=== PATIENT | male | born 1980 | race Caucasian/White ===

== ENCOUNTER 2017-03-03 17:50 | Emergency (ER) | payer OTHER ==
[2017-03-03] MEDS ORDERED: ONDANSETRON HCL 4 MG/2 ML VIAL ONE (20:14)
[2017-03-03] MEDS ORDERED: KETOROLAC TROMETHAMINE 30 MG/ML VIAL ONE (20:14)
[2017-03-03 20:19] LABS: BASOPHIL# 0.1 X 10^3uL (0.0-0.1); EOSINOPHILS 1.9 % (0.0-6.0); EOSINOPHILS# 0.2 X 10^3uL (0.0-0.4); HEMATOCRIT 44.8 % (42.0-54.0); HEMOGLOBIN 15.8 g/dL (14.0-18.0); LYMPHOCYTES 42.8 % (20.0-40.0); LYMPHOCYTES# 3.5 X 10^3uL (0.8-3.8); MEAN CELL VOLUME 84.7 fL (80.0-100.0); MEAN CORPUS. HGB CONCENTRATION 35.3 g/dL (32.0-36.0); MEAN CORPUSCULAR HEMOGLOBIN 29.9 pg (29.0-35.0); MEAN PLATELET VOLUME 8.6 fL (7.4-10.4); MONOCYTES 11.8 % (2.0-10.0); NEUTROPHILS 42.5 % (54.0-75.0); NEUTROPHILS# 3.6 X 10^3uL (2.6-6.7); PLATELET COUNT 271 X 10^3uL (130-440); RED BLOOD COUNT 5.28 X 10^6uL (4.20-6.10); RED CELL DISTRIBUTION WIDTH 12.4 % (11.5-14.5); WHITE BLOOD COUNT 8.4 X 10^3uL (3.9-10.7)
[2017-03-03 20:30] LABS: A/G RATIO 1.2; ALBUMIN 4.6 g/dL (3.5-5.0); ALKALINE PHOSPHATASE 82 U/L (38-126); ALT 59 U/L (21-72); AST 41 U/L (17-59); BILIRUBIN, TOTAL 0.7 mg/dL (0.2-1.3); BLOOD UREA NITROGEN 18 mg/dL (9-20); CALCIUM 9.6 mg/dL (8.4-10.2); CHLORIDE 105 mmol/L (98-107); EST GLOMERULAR FILTRATION RATE > 60 mL/min; GLUCOSE 95 mg/dL (70-100); SODIUM 143 mmol/L (137-145); TOTAL PROTEIN 8.3 g/dL (6.3-8.2)
--- NOTE | 2017-03-03 20:45 | CT REPORT ---
HISTORY: Left flank pain x2 weeks COMPARISON: None TECHNIQUE: This examination was performed using automated exposure control, adjustment of mA or kV ac cording to patient size, and/or use of iterative reconstruction technique. Axial and coronal imaging through the abdomen and pelvis with coronal reformatted images. CONTRAST: None FINDINGS: CHEST: Lung bases are unremarkable. LIVER: Unremarkable GALLBLADDER/DUCTS: Unremarkable PANCREAS: Unremarkable SPLEEN: Unremarkable ADRENAL GLANDS: Unremarkable GENITOURINARY: 4 mm left proximal ureter stone with mild-moderate left hydroureteronephrosis proximal to the stone. No perinephric fluid collection. No evidence of bladder stone. No evidence of right ur inary tract stone. BOWEL AND MESENTERY: Unremarkable APPENDIX: Not visualized AORTA: Unremarkable FREE AIR/FREE FLUID: None PELVIS/OSSEOUS: No evidence of pelvic fracture. No lytic or blastic lesion seen. IMPRESSION: 4 mm left proximal ureter stone. Mild-moderate left hydroureteronephrosis proximal to the ureter brie webber Final Electronic Signature: This report was electronically signed by Gen Emanuel MD on 03/03/2017 8: 42 PM. riley /
[2017-03-03] MEDS ORDERED: oxyCODONE/APAP 5/325 MG PREPAC 1 TAB TABLET PO ONE (21:02)
[2017-03-03] MEDS ORDERED: TAMSULOSIN HCL 0.4 MG CAPSULE PO ONE (21:02)
--- NOTE | 2017-03-03 21:02 | ER PHYSICIAN DOCUMENTATION ---
Physician Documentation [facility] Name:Govind Ley Age:36 yrs Sex:Male :1980 Arrival Date:03/03/2017 Time:19:49 Bed5 Private MD: Lucio Almonte Disposition: 03/03/17 20:48 Discharged to Home/Self Care. Impression: Renal Colic. - Condition is Good. - Discharge Instructions: KIDNEY STONE w/ Colic. - Prescriptions for Percocet 5- 325 mg Oral Tablet - take 1 tablet by ORAL route every 6 hours As needed; 20 tablet. Zofran 8 mg Oral Tablet - take 1 tablet by ORAL route every 12 hours; 20 tablet. Flomax 0.4 mg Oral - take 1 capsule by ORAL route once daily 1/2 hour following the same meal each day, PRN renal colic; 10 capsule. - Medical Reconciliation form form. - Follow up: Private Physician; When: As needed; Reason: Worsening of condition, Continuance of care. - Problem is new. - Symptoms have improved. HPI: 03/03 20:06 This 36 yrs old Male presents to ER via Private Vehicle with complaints of be Possible Kidney Stone. 20:06 The patient presents with LLQ abdominal/pelvic pain radiating to scrotum, associated w/ be urgency and prior ureterolithiasis. Onset: The symptom(s)/episode began/occurred gradually, today. Severity of symptoms: in the emergency department the symptoms a " 9" out of "10". The patient has been recently seen by a physician: with similar presenting complaints, and apparently given a diagnosis of renal colic, was given a prescription for pain medications. Historical: - Allergies: No known drug Allergies; - Home Meds: 1. omeprazole 20 mg oral TbEC daily - PMHx: GERD; - PSHx: None; - Tetanus: < 10 years. - Ebola Screening: : Patient negative for fever greater than or equal to 101.5 degrees Fahrenheit, and additional compatible Ebola Virus Disease symptoms. Patient denies exposure to infectious person. Patient denies travel to an Ebola-affected area in the 21 days before illness onset. . - Immunization history: Flu Vaccine < 1 year. - Social history: Smoking status: Patient states was never smoker of tobacco. ROS: 20:08 : Positive for urinary symptoms, urinary frequency, hematuria, Negative for flank be pain, burning with urination. 20:08 All other systems are negative. Exam: 20:09 Constitutional: This is a well developed, well nourished patient who is awake, alert, be and in acute distress. Chest/axilla: Normal chest wall appearance and motion. Nontender with no deformity. No lesions are appreciated. Cardiovascular: Regular rate and rhythm with a normal S1 and S2. No gallops, murmurs, or rubs. Normal PMI, no JVD. No pulse deficits. Respiratory: Lungs have equal breath sounds bilaterally, clear to auscultation and percussion. No rales, rhonchi or wheezes noted. No increased work of breathing, no retractions or nasal flaring. Abdomen/GI: Soft, non-tender, with normal bowel sounds. No distension or tympany. No guarding or rebound. No evidence of tenderness throughout. 20:09 Back: No spinal tenderness. No costovertebral tenderness. Full range of motion. be 20:09 : CVA tenderness, is absent, Male external genitalia: normal, Bladder: is normal. Vital Signs: 19:58 BP 152 / 82; Pulse 80; Resp 16; Temp 97.2(TE); Pulse Ox 98% on R/A; Weight 97.52 kg; lp Height 6 ft. 0 in. (182.88 cm); Pain 8/10; 20:58 BP 136 / 95; Pulse 62; Resp 16; Pulse Ox 93% on R/A; lp 19:58 Body Mass Index 29.16 (97.52 kg, 182.88 cm) lp MDM: 19:57 Patient medically screened. be 20:09 Differential diagnosis: UTI, renal colic. Data reviewed: vital signs, nurses notes, lab be test result(s), radiologic studies. 20:45 Data reviewed: and as a result, I will discharge patient, administer IV fluids, NS be bolus, prescribe pain medication, Dilaudid, Toradol. 03/03 20:24 Order name: CBC AUTO DIF, MDIF/RMOR IF IND; Complete Time: 20:45 EDMS 07 20:44 Interpretation: Normal. be 07 20:32 Order name: COMPREHENSIVE METABOLIC PANEL; Complete Time: 20:45 EDMS 07 20:44 Interpretation: mild renal insufficiency. be 03/03 20:47 Order name: CAT SCAN; A[place] [id number]; Complete Time: 21:22 EDMS 03/03 21:22 Interpretation: Abnormal: 4 mm proximal left ureteral stone with mild hydroureter. be 03/03 20:46 Order name: Urine Strainer: and urinal; Complete Time: 21:00 be Dispensed Medications: 20:09 Drug: NS 0.9% 1000 ml; Route: IV; Rate: bolus; Site: right antecubital; lp 20:37 Follow up: Response: No adverse reaction; IV Status: Completed infusion; IV Intake: lp 1000ml 20:09 Drug: Zofran 8 mg; Route: IVP; Infused Over: 2 mins; Site: right antecubital; lp 20:37 Follow up: Response: No adverse reaction; Nausea is decreased lp 20:09 Drug: Toradol 30 mg; Route: IVP; Site: right antecubital; lp 20:37 Follow up: Response: Pain is decreased lp 20:09 Drug: Dilaudid 1 mg; Route: IVP; Site: right antecubital; lp 20:38 Follow up: Response: Pain is decreased lp 20:59 Drug: Flomax - Tamsulosin Capsule 0.4 mg; Route: PO; lp 20:59 Follow up: Response: Medication administered at discharge. lp 20:59 Drug: Percocet Tablet (5 mg-325 mg) 6 tabs; Route: PO; lp 20:59 Follow up: Response: Medication administered at discharge. lp 20:59 Drug: Zofran 1 tablet; Route: PO; lp 21:00 Follow up: Response: Medication administered at discharge. lp Signatures: Mary Lewis RN RN lp Lucio Cifuentes MD MD be
--- NOTE | 2017-03-03 21:02 | ER NURSING DOCUMENTATION ---
Nurse's Notes [facility] Name:Govind Ley Age:36 yrs Sex:Male :1980 Arrival Date:03/03/2017 Time:19:49 Bed5 Private MD: Diagnosis:Renal Colic Presentation: 03/03 19:56 Presenting complaint: Patient states: Abdominal pain that patient feels is from a lp kidney stone. Transition of care: Home. Notified ED Physician of Dr. Cifuentes notified. 19:56 Acuity: CINDY 3 lp 19:56 Method Of Arrival: Private Vehicle lp Triage Assessment: 19:58 General: Appears uncomfortable, Behavior is anxious, restless. Pain: Complains of pain lp in left lower quadrant Pain does not radiate. Pain currently is 8 out of 10 on a pain scale. EENT: No deficits noted. Neuro: No deficits noted. Cardiovascular: No deficits noted. Respiratory: No deficits noted. GI: No deficits noted. : No deficits noted. Historical: - Allergies: No known drug Allergies; - Home Meds: 1. omeprazole 20 mg oral TbEC daily - PMHx: GERD; - PSHx: None; - Tetanus: < 10 years. - Ebola Screening: : Patient negative for fever greater than or equal to 101.5 degrees Fahrenheit, and additional compatible Ebola Virus Disease symptoms. Patient denies exposure to infectious person. Patient denies travel to an Ebola-affected area in the 21 days before illness onset. . - Immunization history: Flu Vaccine < 1 year. - Social history: Smoking status: Patient states was never smoker of tobacco. Screenin:10 Infectious Disease Risk None. Abuse screen: Denies threats or abuse. Denies injuries lp from another. Nutritional screening: No deficits noted. Assessment: 20:10 See Triage Assessment done by same RN. lp Vital Signs: 19:58 BP 152 / 82; Pulse 80; Resp 16; Temp 97.2(TE); Pulse Ox 98% on R/A; Weight 97.52 kg; lp Height 6 ft. 0 in. (182.88 cm); Pain 8/10; 20:58 BP 136 / 95; Pulse 62; Resp 16; Pulse Ox 93% on R/A; lp 19:58 Body Mass Index 29.16 (97.52 kg, 182.88 cm) lp ED Course: 19:51 Patient arrived in ED. dp 19:56 Mary Lewis, YUAN is Primary Nurse. lp 19:56 Triage completed. lp 19:57 Lucio Cifuentes MD is Attending Physician. be 20:00 Missed attempts: 20 gauge X 1 in left antecubital area, Bleeding controlled, band aid em3 applied, catheter tip intact. 20:05 Labs drawn. By network security administrator Sent per order to lab. Inserted saline lock: 20 gauge in right em3 antecubital area and blood collected. 20:05 Valuables Remains with patient Patient has correct armband on for positive em3 identification. Placed in gown. Bed in low position. Call light in reach. Side rails up X 1. 20:[address] dnn 20:[address] Patient moved back from [address]. dnn Administered Medications: 20:09 Drug: NS 0.9% 1000 ml; Route: IV; Rate: bolus; Site: right antecubital; lp 20:37 Follow up: Response: No adverse reaction; IV Status: Completed infusion; IV Intake: lp 1000ml 20:09 Drug: Zofran 8 mg; Route: IVP; Infused Over: 2 mins; Site: right antecubital; lp 20:37 Follow up: Response: No adverse reaction; Nausea is decreased lp 20:09 Drug: Toradol 30 mg; Route: IVP; Site: right antecubital; lp 20:37 Follow up: Response: Pain is decreased lp 20:09 Drug: Dilaudid 1 mg; Route: IVP; Site: right antecubital; lp 20:38 Follow up: Response: Pain is decreased lp 20:59 Drug: Flomax - Tamsulosin Capsule 0.4 mg; Route: PO; lp 20:59 Follow up: Response: Medication administered at discharge. lp 20:59 Drug: Percocet Tablet (5 mg-325 mg) 6 tabs; Route: PO; lp 20:59 Follow up: Response: Medication administered at discharge. lp 20:59 Drug: Zofran 1 tablet; Route: PO; lp 21:00 Follow up: Response: Medication administered at discharge. lp Intake: 20:37 IV: 1000ml; Total: 1000ml. lp Outcome: 20:48 Discharge ordered by . be 20:58 Discharged to home ambulatory. lp 20:58 Condition: improved 20:58 Instructed on discharge instructions, follow up and referral plans. medication usage. 21:01 Patient left the ED. lp Signatures: Mary Lewis RN RN lp Elliott, Brian, MD MD be Norman, David dnn Meiklejohn, Eric [facility] Akua Bush
[2017-03-03] MEDS ORDERED: ONDANSETRON ODT PREPAC 4 MG TAB.RAPDIS PO ONE (21:03)
== END 2017-03-03 21:02 | disposition home or self-care (01) ==
LOC: ER 19:49
DX: N20.1 Calculus of ureter (principal); N23 Unspecified renal colic
CPT/HCPCS: 74176; 80053; 85025; 96374; 96375; 99284; J1170; J1885; J2405

== ENCOUNTER 2017-03-04 03:57 | Emergency (ER) | payer OTHER ==
[2017-03-04] MEDS ORDERED: KETOROLAC TROMETHAMINE 30 MG/ML VIAL ONE (04:21)
[2017-03-04] MEDS ORDERED: ONDANSETRON HCL 4 MG/2 ML VIAL ONE (04:22)
--- NOTE | 2017-03-04 06:23 | ER PHYSICIAN DOCUMENTATION ---
Physician Documentation [facility] Name:Govind Ley Age:36 yrs Sex:Male :1980 Arrival Date:03/04/2017 Time:03:57 Bed1 Private MD: Lucio Almonte Disposition: 03/04/17 05:19 Transfer ordered to [facility]. Diagnosis is Ureterolithiasis - Renal Colic. - Reason for transfer: Higher level of care. - Accepting physician is Dr[facility] Hospitalist. - Condition is Good. - Problem is new. - Symptoms have improved. COBRA Form completed? Yes Transfer - Mode of Transportation Ambulance HPI: 03/04 05:02 This 36 yrs old Male presents to ER via Walk In with complaints of Flank Pain.be 05:02 The patient complains of pain in the left flank. The pain radiates left groin. Onset: be The symptom(s)/episode began/occurred yesterday. Associated signs and symptoms: Pertinent positives: nausea, urgency. Severity of pain: At its worst the pain was severe today. The patient has experienced similar episodes in the past, several times, today's symptoms are similar, to when the patient was apparently diagnosed with left ureteral 4 mm stone w/ moderate obstructive uropathy. Historical: - Allergies: No known drug Allergies; - Home Meds: 1. Omeprazole Oral 2. Percocet Oral - PMHx: GASTRIC REFLUX; - PSHx: None; - Tetanus: < 10 years. - Ebola Screening: : Patient denies exposure to infectious person. Patient denies travel to an Ebola-affected area in the 21 days before illness onset. No symptoms or risks identified at this time. . - Immunization history: Flu Vaccine < 1 year. - Social history: Smoking status: Patient states was never smoker of tobacco. - Code Status:: Full code. ROS: 05:04 Abdomen/GI: Positive for nausea, Negative for abdominal pain, diarrhea, hematemesis. be 05:04 : Positive for urgency and known ureteral stone. 05:04 All other systems are negative. Exam: 05:05 Constitutional: This is a well developed, well nourished patient who is awake, alert, be and in acute distress. Cardiovascular: Regular rate and rhythm with a normal S1 and S2. No gallops, murmurs, or rubs. Normal PMI, no JVD. No pulse deficits. Respiratory: Lungs have equal breath sounds bilaterally, clear to auscultation and percussion. No rales, rhonchi or wheezes noted. No increased work of breathing, no retractions or nasal flaring. 05:05 Back: No spinal tenderness. No costovertebral tenderness. Full range of motion. be 05:05 Abdomen/GI: Bowel sounds: normal, Palpation: abdomen is soft and non-tender. 05:05 : CVA tenderness, is absent, Male external genitalia: normal, Bladder: is normal. Vital Signs: 04:02 BP 120 / 74 LA Sitting (auto/lg); Pulse 80 LA; Resp 28 S; Temp 97.7(O); Pulse Ox 96% on em3 R/A; Weight 97.52 kg; Height 6 ft. 0 in. (182.88 cm) (R); Pain 10/10; 06:21 BP 124 / 72; Pulse 88; Resp 18; Pulse Ox 94% on R/A; Pain 5/10; lb 04:02 Body Mass Index 29.16 (97.52 kg, 182.88 cm) em3 MDM: 04:40 Patient medically screened. be 05:05 Differential diagnosis: nephrolithiasis, pyelonephritis, UTI. Data reviewed: vital be signs, and as a result, I will *Transfer Patient. Dispensed Medications: 04:24 Drug: NS 0.9% 1000 ml; Route: IV; Rate: bolus; Site: right antecubital; lb 05:58 Follow up: IV Status: Completed infusion; IV Intake: 1000ml lb 04:24 Drug: Zofran 8 mg; Route: IVP; Infused Over: 2 mins; Site: right antecubital; lb 04:35 Follow up: Response: Nausea is decreased lb 04:24 Drug: ketorolac 30 mg; Route: IVP; Site: right antecubital; lb 04:35 Follow up: Response: Pain is decreased lb 04:24 Drug: Dilaudid 1 mg; Route: IVP; Site: right antecubital; lb 04:35 Follow up: Response: Pain is decreased lb 05:40 Drug: Dilaudid 1 mg; Route: IVP; Site: right antecubital; fc 05:58 Follow up: Response: Pain is decreased lb 05:40 Not Given (Physician Discretion): Dilaudid 1 mg IVP once fc Point of Care Testing: Urine Dip: 05:26 pH: 5.5; ; Specific [place]: 1.025; Ketones: Small; Glucose: Negative; Protein: lb Negative; Leukocytes: Negative; Nitrite: Negative ; Blood: Large (+++); Bilirubin: Negative ; Urobilinogen: Normal Signatures: Lucio Cifuentes MD MD be collins, floyd fc Bollock, Lynda lb
--- NOTE | 2017-03-04 06:23 | ER NURSING DOCUMENTATION ---
Nurse's Notes [facility] Name:Govind Ley Age:36 yrs Sex:Male :1980 Arrival Date:03/04/2017 Time:03:57 Bed1 Private MD: Diagnosis:Ureterolithiasis - Renal Colic Presentation: 03/04 04:02 Acuity: CINDY 3 lb 04:24 Presenting complaint: Patient states: left flank pain and vomiting. seen here earlier lb and dx with kidney stone. states pain meds are not helping. Transition of care: Home. Notified ED Physician of Dr. Cifuentes notified. Care prior to arrival: Medication(s) given: percocet. 04:24 Method Of Arrival: Walk In lb Triage Assessment: 04:28 General: Appears distressed, uncomfortable, Behavior is restless. Pain: Complains of lb pain in left low back Pain does not radiate. Pain currently is 10 out of 10 on a pain scale. EENT: No deficits noted. Neuro: No deficits noted. Cardiovascular: No deficits noted. Respiratory: No deficits noted. GI: No deficits noted. : Reports pain in left flank(s). Historical: - Allergies: No known drug Allergies; - Home Meds: 1. Omeprazole Oral 2. Percocet Oral - PMHx: GASTRIC REFLUX; - PSHx: None; - Tetanus: < 10 years. - Ebola Screening: : Patient denies exposure to infectious person. Patient denies travel to an Ebola-affected area in the 21 days before illness onset. No symptoms or risks identified at this time. . - Immunization history: Flu Vaccine < 1 year. - Social history: Smoking status: Patient states was never smoker of tobacco. - Code Status:: Full code. Screenin:30 Infectious Disease Risk None. Abuse screen: Denies threats or abuse. Denies injuries lb from another. Nutritional screening: No deficits noted. Assessment: 04:29 See Triage Assessment done by same RN. General: Appears distressed, uncomfortable. lb Pain: Complains of pain in left low back Pain does not radiate. Pain currently is 10 out of 10 on a pain scale. Neuro: No deficits noted. EENT: No deficits noted. Cardiovascular: No deficits noted. Respiratory: No deficits noted. Vital Signs: 04:02 BP 120 / 74 LA Sitting (auto/lg); Pulse 80 LA; Resp 28 S; Temp 97.7(O); Pulse Ox 96% on em3 R/A; Weight 97.52 kg; Height 6 ft. 0 in. (182.88 cm) (R); Pain 10/10; 06:21 BP 124 / 72; Pulse 88; Resp 18; Pulse Ox 94% on R/A; Pain 5/10; lb 04:02 Body Mass Index 29.16 (97.52 kg, 182.88 cm) em3 ED Course: 03:58 Patient arrived in ED. em3 04:02 Shanthi Hunter is Primary Nurse. lb 04:02 Triage completed. lb 04:04 Valuables Remains with patient Patient has correct armband on for positive em3 identification. Bed in low position. Call light in reach. Side rails up X 1. 04:30 Inserted peripheral IV: 20 gauge in right antecubital area. lb 04:40 Lucio Cifuentes MD is Attending Physician. be Administered Medications: 04:24 Drug: NS 0.9% 1000 ml; Route: IV; Rate: bolus; Site: right antecubital; lb 05:58 Follow up: IV Status: Completed infusion; IV Intake: 1000ml lb 04:24 Drug: Zofran 8 mg; Route: IVP; Infused Over: 2 mins; Site: right antecubital; lb 04:35 Follow up: Response: Nausea is decreased lb 04:24 Drug: ketorolac 30 mg; Route: IVP; Site: right antecubital; lb 04:35 Follow up: Response: Pain is decreased lb 04:24 Drug: Dilaudid 1 mg; Route: IVP; Site: right antecubital; lb 04:35 Follow up: Response: Pain is decreased lb 05:40 Drug: Dilaudid 1 mg; Route: IVP; Site: right antecubital; fc 05:58 Follow up: Response: Pain is decreased lb 05:40 Not Given (Physician Discretion): Dilaudid 1 mg IVP once fc Point of Care Testing: Urine Dip: 05:26 pH: 5.5; ; Specific [place]: 1.025; Ketones: Small; Glucose: Negative; Protein: lb Negative; Leukocytes: Negative; Nitrite: Negative ; Blood: Large (+++); Bilirubin: Negative ; Urobilinogen: Normal Intake: 05:58 IV: 1000ml; Total: 1000ml. lb Outcome: 05:19 ER care complete, transfer ordered by . be 06:21 Transferred: Patient will be transferred to: [facility] Facility lb Acceptance Time: March 04, 2017 at 05:20 Patient's face sheet was faxed to accepting facility. Face Sheet included patient's name, address, age, gender, contact information and insurance information. Patient will be transported by: [facility] ground. Report called to: Eliecer BOLDEN Nurse and Physician Charting and Notes were sent to Accepting Facility. All tests and/or procedures with results, if applicable, were sent to accepting facility. 06:21 Condition: stable 06:21 Discharge Assessment: Patient awake, alert and oriented x 3. No cognitive and/or functional deficits noted. Patient verbalized understanding of disposition instructions. 06:21 Instructed on need for transfer 06:22 Patient left the ED. lb Signatures: Lucio Cifuentes MD MD be Meiklejohn, Eric anastacia metzger Lynda lb
== END 2017-03-04 06:23 | disposition short-term general hospital (02) ==
LOC: ER 03:57
DX: N20.1 Calculus of ureter (principal); N23 Unspecified renal colic; R11.10 Vomiting, unspecified; R31.9 Hematuria, unspecified; R39.15 Urgency of urination; Z74.3 Need for continuous supervision
CPT/HCPCS: 96361; 96374; 96375; 96376; 99285; A0425; A0427; J1170; J1885; J2405